=== PATIENT | female | born 1995 | race Caucasian/White ===

== ENCOUNTER 2019-06-23 04:10 | Inpatient (IN) | payer BC ==
[2019-06-23] MEDS ORDERED: Nalbuphine 10 MG/1 ML Vial IVPUSH PRN (14:00)
[2019-06-23] MEDS ORDERED: Ondansetron 4 MG/2 ML SDV IVPUSH PRN ×2 (14:00→16:02)
[2019-06-23] MEDS ORDERED: Sodium Chloride 0.9% 10 ML Syringe FLUSH PRN (14:00)
[2019-06-23] MEDS ORDERED: Oxytocin/Lactated Ringers 10 UNIT/1,000 ML BAG IV SCH ×2 (14:00→14:30)
[2019-06-23] MEDS: Lactated Ringers 1,000 ML IV SCH ×3 (14:19→20:13)
[2019-06-23] MEDS ORDERED: ePHEDrine 50 MG/ML SDV IVPUSH PRN (16:02)
[2019-06-23] MEDS ORDERED: fentaNYL 100 MCG/2 ML SDV EPIDUR PRN (16:02)
--- NOTE | 2019-06-23 16:09 | PCM.PREANE ---
Preanesthetic Assessment - Anesthesia/Transfusion/Family Hx Anesthesia History: Prior Anesthesia Without Reaction Family History of Anesthesia Reaction: No Transfusion History: No Prior Transfusion(s) Intubation History: Unknown - Review of Systems General: No Symptoms Pulmonary: No Symptoms (Asthma-last used inhaler 5 years ago.) Cardiovascular: No Symptoms Gastrointestinal: No Symptoms (GERD) Neurological: No Symptoms Other: Reports: None, Sinus Problem (seasonal allergies) - Physical Assessment NPO Status Date: 06/23/19 NPO Status Time: 09:00 Vital Signs: Last Vital Signs Temp 36.4 C 06/23/19 14:00 Pulse 89 06/23/19 14:00 Resp 16 06/23/19 14:00 BP 130/76 06/23/19 14:00 Pulse Ox Height: 1.63 m Weight: 91.626 kg ASA Class: 2 Mental Status: Alert & Oriented x3 Airway Class: Mallampati = 3 Dentition: Reports: Normal Dentition, Caries Thyro-Mental Finger Breadths: 3 Mouth Opening Finger Breadths: 3 ROM/Head Extension: Full Lungs: Clear to Auscultation, Normal Respiratory Effort Cardiovascular: Regular Rate, Regular Rhythm, No Murmurs - Lab Values: Laboratory Last Values WBC 14.25 K/mm3 (3.98-10.04) H 06/23/19 14:20 RBC 4.05 M/mm3 (3.98-5.22) 06/23/19 14:20 Hgb 11.9 gm/L (11.2-15.7) D 06/23/19 14:20 Hct 36.0 % (34.1-44.9) 06/23/19 14:20 MCV 88.9 fl (79.4-94.8) D 06/23/19 14:20 MCH 29.4 pg (25.6-32.2) 06/23/19 14:20 MCHC 33.1 g/dl (32.2-35.5) 06/23/19 14:20 RDW Std Deviation 44.4 fL (36.4-46.3) 06/23/19 14:20 Plt Count 267 K/mm3 (182-369) 06/23/19 14:20 MPV 9.9 fl (9.4-12.3) 06/23/19 14:20 Blood Type A POSITIVE 06/23/19 14:20 Gel Antibody Screen Negative 06/23/19 14:20 Above labs reviewed and noted and within acceptable ranges to proceed with epidural if desired. - Allergies Allergies/Adverse Reactions: Allergies Allergy/AdvReac Type Severity Reaction Status Date / Time Sulfa (Sulfonamide Allergy Rash Verified 11/07/14 23:18 Antibiotics) - Anesthesia Plan Pre-Op Medication Ordered: None - Acknowledgements Anesthesia Type Planned: Epidural Pt an Appropriate Candidate for the Planned Anesthesia: Yes Alternatives and Risks of Anesthesia Discussed w Pt/Guardian: Yes Pt/Guardian Understands and Agrees with Anesthesia Plan: Yes PreAnesthesia Questionnaire Cardiovascular History: Reports: Other (See Below) Other Cardiovascular History: history of heart murmer Respiratory History: Reports: Asthma Other Respiratory History: good control 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: - Past Surgical History HEENT Surgical History: Reports: Naso-Sinus Surgery - SUBSTANCE USE Smoking Status *Q: Never Smoker - HOME MEDS Home Medications: Home Meds PNV95/Ferrous Fumarate/FA [ Tablet] 1 each PO DAILY 06/23/19 [History] - CURRENT (IN HOUSE) MEDS Current Meds: Current Medications Lactated Ringer's (Ringers, Lactated) 1,000 mls @ 100 mls/hr IV ASDIRECTED IGNACIO Last Admin: 06/23/19 14:19 Dose: 100 mls/hr Oxytocin/Lactated Ringer's (Pitocin In Lr 10 Units/1,000 Ml) 10 unit in 1,000 mls @ 12 mls/hr IV TITRATE IGNACIO; Protocol Last Titration: 06/23/19 15:18 Dose: 4 munits/min, 24 mls/hr Nalbuphine HCl (Nubain) 10 mg IVPUSH Q2H PRN PRN Reason: Pain Ondansetron HCl (Zofran) 4 mg IVPUSH Q4H PRN PRN Reason: Nausea/Vomiting Sodium Chloride (Saline Flush) 10 ml FLUSH ASDIRECTED PRN PRN Reason: Keep Vein Open Discontinued Medications Oxytocin/Lactated Ringer's (Pitocin In Lr 10 Units/1,000 Ml) 10 unit in 1,000 mls @ 500 mls/hr IV .CONTINUOUS IGNACIO
[2019-06-23] MEDS ORDERED: Bupivacaine/fentaNYL/NS 100 ML Bag EPIDUR SCH (16:15)
[2019-06-23] MEDS ORDERED: Phenylephrine 1 MG in Sodium Chloride 0.9% 10 ML IV SCH (16:15)
--- NOTE | 2019-06-23 19:22 | PCM.LDHP ---
L&D History of Present Illness - General Date of Service: 06/23/19 Admit Problem/Dx: Patient Status Order with Admit Dx/Problem 06/23/19 14:00 Patient Status [ADT] Routine Admission Diagnosis/Problem Admission Diagnosis/Problem Spontaneous rupture of amniotic membranes Source of Information: Patient History Limitations: Reports: No Limitations - History of Present Illness Introduction:: Patient is a 23 y/o at 38 4/7 wks who presents with SROM. Doing well. Minimal contractions. 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: : 1 Para: 0 LMP (Approximate): - Past Surgical History HEENT Surgical History: Reports: Naso-Sinus Surgery Social & Family History - Tobacco Use Smoking Status *Q: Never Smoker - Caffeine Use Caffeine Use: Reports: None - Alcohol Use Alcohol Use History: No - Recreational Drug Use Recreational Drug Use: No H&P Review of Systems - Review of Systems: Review Of Systems: See Below General: Reports: No Symptoms Pulmonary: Reports: No Symptoms Cardiovascular: Reports: No Symptoms Gastrointestinal: Reports: No Symptoms Genitourinary: Reports: No Symptoms Musculoskeletal: Reports: No Symptoms Psychiatric: Reports: No Symptoms Neurological: Reports: No Symptoms L&D Exam - Exam Exam: See Below - Vital Signs Vital Signs: Last Vital Signs Temp 36.4 C 06/23/19 14:00 Pulse 89 06/23/19 14:00 Resp 16 06/23/19 14:00 BP 130/76 06/23/19 14:00 Pulse Ox Weight: 91.626 kg - OB Specific Contraction Intensity: Mild to Moderate Movement: Active Heart Tones: Present Heart Tones per Min: 135 Heart Rate (FHR) Variability: Moderate (6-25 bmp) Presentation: Vertex - Min Score Min Score Cervix Position: Midposition Min Score Consistency: Soft Min Score Effacement: >80% Min Score Dilation: 3-4 cm Min Score 's Station: -2 Min Score Total: 9 - Exam General: Alert, Oriented, Cooperative Lungs: Clear to Auscultation, Normal Respiratory Effort Cardiovascular: Regular Rate, Regular Rhythm GI/Abdominal Exam: Soft, Non-Tender Genitourinary: Normal external exam Extremities: Normal Inspection Skin: Warm, Dry, Intact - Patient Data Lab Results Last 24 hrs: Laboratory Results - last 24 hr 06/23/19 06/23/19 Range/Units 14:20 14:20 WBC 14.25 H (3.98-10.04) K/mm3 RBC 4.05 (3.98-5.22) M/mm3 Hgb 11.9 D (11.2-15.7) gm/L Hct 36.0 (34.1-44.9) % MCV 88.9 D (79.4-94.8) fl MCH 29.4 (25.6-32.2) pg MCHC 33.1 (32.2-35.5) g/dl RDW Std Deviation 44.4 (36.4-46.3) fL Plt Count 267 (182-369) K/mm3 MPV 9.9 (9.4-12.3) fl Blood Type A POSITIVE Gel Antibody Screen Negative Result Diagrams: 06/23/19 14:20 - Problem List (1) 38 weeks gestation of SNOMED Code(s): 02967943 ICD Code: Z3A.38 - 38 WEEKS GESTATION OF Status: Acute Current Visit: Yes (2) Spontaneous rupture of membranes SNOMED Code(s): 118206175 ICD Code: [id number] - Status: Acute Current Visit: Yes Problem List Initiated/Reviewed/Updated: Yes Orders Last 24hrs: Active Orders 24 hr Category Date Time Status Patient Status [ADT] Routine ADT 06/23/19 14:00 Active Activity as Tolerated [RC] PFP Care 06/23/19 14:00 Active Communication Order [RC] ASDIRECTED Care 06/23/19 14:00 Active Heart Tones [RC] ASDIRECTED Care 06/23/19 14:01 Active Non Stress Test [RC] PER UNIT ROUTINE Care 06/23/19 14:00 Active Notify Provider [RC] ASDIRECTED Care 06/23/19 16:02 Active Notify Provider [RC] PFP Care 06/23/19 14:00 Active Notify Provider [RC] PRN Care 06/23/19 14:00 Active Oxygen Therapy [RC] ASDIRECTED Care 06/23/19 16:02 Active Peripheral IV Care [RC] . DIRECTED Care 06/23/19 14:01 Active Pulse Oximetry [RC] ASDIRECTED Care 06/23/19 16:02 Active Vital Signs [RC] PER UNIT ROUTINE Care 06/23/19 14:00 Active Regular Diet [DIET] Diet 06/23/19 Lunch Active PATIENT RETYPE [BBK] Routine Lab 06/23/19 15:08 Ordered RAPID PLASMA REAGIN,RPR [CHEM] Routine Lab 06/23/19 14:20 Received Bupivacaine/fentaNYL/NS [fentaNYL/Bupivacaine/NS 2 MCG- Med 06/23/19 16:15 Active 0.125% 100 ML] 100 ml EPIDUR ASDIRECTED Lactated Ringers [Ringers, Lactated] 1,000 ml Med 06/23/19 14:00 Active IV ASDIRECTED Nalbuphine [Nubain] Med 06/23/19 14:00 Active 10 mg IVPUSH Q2H PRN Ondansetron [Zofran] Med 06/23/19 16:02 Active 4 mg IVPUSH ONETIME PRN Ondansetron [Zofran] Med 06/23/19 14:00 Active 4 mg IVPUSH Q4H PRN Oxytocin/Lactated Ringers [Pitocin in LR 10 Units/1,000 Med 06/23/19 14:30 Active ML] 10 unit in 1,000 ml IV TITRATE Phenylephrine [Jaime-Synephrine] 1 mg Med 06/23/19 16:15 Active Sodium Chloride 0.9% [Normal Saline] 10 ml IV TITRATE Sodium Chloride 0.9% [Saline Flush] Med 06/23/19 14:00 Active 10 ml FLUSH ASDIRECTED PRN ePHEDrine [ePHEDrine sulfate] Med 06/23/19 16:02 Active 5 mg IVPUSH ASDIRECTED PRN fentaNYL [Sublimaze] Med 06/23/19 16:02 Active 100 mcg EPIDUR Q3H PRN Electronic Heart Tones Ext w TOCO [WOMSER] Oth 06/23/19 14:00 Ordered Routine Electronic Heart Tones Internal [WOMSER] Per Unit Oth 06/23/19 14:00 Ordered Routine Peripheral IV Insertion Adult [OM.PC] Routine Oth 06/23/19 14:00 Ordered Resuscitation Status Routine Resus Stat 06/23/19 14:00 Ordered Medication Orders Ephedrine Sulfate (Ephedrine Sulfate) 5 mg IVPUSH ASDIRECTED PRN PRN Reason: Hypotension Fentanyl (Sublimaze) 100 mcg EPIDUR Q3H PRN PRN Reason: Pain Fentanyl/Bupivacaine HCl (Fentanyl/Bupivacaine/Ns 2 Mcg-0.125% 100 Ml) 100 ml EPIDUR ASDIRECTED IGNACIO Lactated Ringer's (Ringers, Lactated) 1,000 mls @ 100 mls/hr IV ASDIRECTED IGNACIO Last Admin: 06/23/19 19:16 Dose: 100 mls/hr Infusion: 06/23/19 19:16 Dose: 100 mls/hr Admin: 06/23/19 14:19 Dose: 100 mls/hr Oxytocin/Lactated Ringer's (Pitocin In Lr 10 Units/1,000 Ml) 10 unit in 1,000 mls @ 12 mls/hr IV TITRATE IGNACIO; Protocol Last Titration: 06/23/19 16:31 Dose: 6 munits/min, 36 mls/hr Titration: 06/23/19 15:18 Dose: 4 munits/min, 24 mls/hr Admin: 06/23/19 14:20 Dose: 2 munits/min, 12 mls/hr Phenylephrine HCl 1 mg/ Sodium (Chloride) 10.1 mls @ 1 mls/sec IV TITRATE IGNACIO; Protocol Nalbuphine HCl (Nubain) 10 mg IVPUSH Q2H PRN PRN Reason: Pain Last Admin: 06/23/19 18:52 Dose: 10 mg Ondansetron HCl (Zofran) 4 mg IVPUSH Q4H PRN PRN Reason: Nausea/Vomiting Ondansetron HCl (Zofran) 4 mg IVPUSH ONETIME PRN PRN Reason: Nausea/Vomiting Sodium Chloride (Saline Flush) 10 ml FLUSH ASDIRECTED PRN PRN Reason: Keep Vein Open Assessment/Plan Comment:: 23 y/o at 38 4/7 wks who presents with SROM * labs * GBS negative, no need for antibiotics * pain management per patient preference * Anticipate
--- NOTE | 2019-06-23 20:00 | PCM.PNLD ---
Labor Progress Note - VS & Meds Vital Signs: Last Vital Signs Temp 36.4 C 06/23/19 14:00 Pulse 89 06/23/19 14:00 Resp 16 06/23/19 14:00 BP 130/76 06/23/19 14:00 Pulse Ox Active Medications: Current Medications Ephedrine Sulfate (Ephedrine Sulfate) 5 mg IVPUSH ASDIRECTED PRN PRN Reason: Hypotension Fentanyl (Sublimaze) 100 mcg EPIDUR Q3H PRN PRN Reason: Pain Last Admin: 06/23/19 19:56 Dose: 100 mcg Fentanyl/Bupivacaine HCl (Fentanyl/Bupivacaine/Ns 2 Mcg-0.125% 100 Ml) 100 ml EPIDUR ASDIRECTED IGNACIO Last Admin: 06/23/19 19:55 Dose: 100 ml Lactated Ringer's (Ringers, Lactated) 1,000 mls @ 100 mls/hr IV ASDIRECTED IGNACIO Last Admin: 06/23/19 19:16 Dose: 100 mls/hr Oxytocin/Lactated Ringer's (Pitocin In Lr 10 Units/1,000 Ml) 10 unit in 1,000 mls @ 12 mls/hr IV TITRATE IGNACIO; Protocol Last Titration: 06/23/19 16:31 Dose: 6 munits/min, 36 mls/hr Phenylephrine HCl 1 mg/ Sodium (Chloride) 10.1 mls @ 1 mls/sec IV TITRATE IGNACIO; Protocol Nalbuphine HCl (Nubain) 10 mg IVPUSH Q2H PRN PRN Reason: Pain Last Admin: 06/23/19 18:52 Dose: 10 mg Ondansetron HCl (Zofran) 4 mg IVPUSH Q4H PRN PRN Reason: Nausea/Vomiting Ondansetron HCl (Zofran) 4 mg IVPUSH ONETIME PRN PRN Reason: Nausea/Vomiting Sodium Chloride (Saline Flush) 10 ml FLUSH ASDIRECTED PRN PRN Reason: Keep Vein Open Discontinued Medications Oxytocin/Lactated Ringer's (Pitocin In Lr 10 Units/1,000 Ml) 10 unit in 1,000 mls @ 500 mls/hr IV .CONTINUOUS IGNACIO - Uterine Contractions Uterine Monitoring Mode: External [place] Contraction Intensity: Moderate to Strong Uterine Resting Tone: Soft - Monitoring Monitor Mode: External Ultrasound Heart Rate (FHR) Baseline: 135 Heart Rate (FHR) Variability: Moderate (6-25 bmp) Accelerations: Present, 15x15 Decelerations: None Strip Review: Category I - Labor Progress (Free Text) Labor Progress: Doing well. About to get her epidural. Pitocin at 6. Continue present management. Reassess cervix after epidural
[2019-06-24] MEDS ORDERED: Bupivacaine 0.25% 10 ML SDV ONE
[2019-06-24] MEDS ORDERED: Misoprostol 200 MCG Tab ONE (04:20)
--- NOTE | 2019-06-24 04:24 | PCM.DEL ---
L & D Note - General Info Date of Service: 06/24/19 - Delivery Note Labor: Augmented by Oxytocin Delivery Outcome: Livebirth Delivery Method: Spontaneous Vaginal Delivery-Single Delivery Mode: Spontaneous Presentation: Right Occiput Posterior (ROP) Nuchal Cord: None Anesthesia Type: Epidural Amniotic Fluid Description: Clear Episiotomy Type: None Laceration: 2nd Degree, Perineal Suture type: Vicryl Suture size: 2-0 Placenta: Intact, Spontaneous Cord: 3 Vessels Estimated Blood Loss: 250 Resuscitation Needed: No [place]: Bulb Syringe, Stimulated, Warmed, Sabina Used, Warmer Used Delivery Comments (Free Text/Narrative):: Patient found to be complete and began pushing. With maternal pushing effort head delivered from an ROP presentation. No nuchal cord present. With gentle downward traction the shoulders and body delivered. placed on maternal abdomen. Cord clamped and cut. Cord blood obtained. Placenta allowed time to separate and expelled intact. Inspection of the perineum showed a 2nd degree laceration which was repaired with a 2-0 vicryl. Slight trickle of blood noted. Sweep of KIRSTIN performed and removed a small/moderate amount of clot. Patient given 600 mcg of cytotec. - General Info Date of Service: 06/24/19 - Patient Data Vitals - Most Recent: Last Vital Signs Temp 36.4 C 06/23/19 14:00 Pulse 89 06/23/19 14:00 Resp 16 06/23/19 14:00 BP 130/76 06/23/19 14:00 Pulse Ox Weight - Most Recent: 91.626 kg Lab Results Last 24 Hours: Laboratory Results - last 24 hr 06/23/19 06/23/19 06/23/19 Range/Units 14:20 14:20 14:20 WBC 14.25 H (3.98-10.04) K/mm3 RBC 4.05 (3.98-5.22) M/mm3 Hgb 11.9 D (11.2-15.7) gm/L Hct 36.0 (34.1-44.9) % MCV 88.9 D (79.4-94.8) fl MCH 29.4 (25.6-32.2) pg MCHC 33.1 (32.2-35.5) g/dl RDW Std Deviation 44.4 (36.4-46.3) fL Plt Count 267 (182-369) K/mm3 MPV 9.9 (9.4-12.3) fl RPR Non-reactive (NONREACTIVE) Blood Type A POSITIVE Gel Antibody Screen Negative Med Orders - Current: Current Medications Ephedrine Sulfate (Ephedrine Sulfate) 5 mg IVPUSH ASDIRECTED PRN PRN Reason: Hypotension Fentanyl (Sublimaze) 100 mcg EPIDUR Q3H PRN PRN Reason: Pain Last Admin: 06/23/19 19:56 Dose: 100 mcg Fentanyl/Bupivacaine HCl (Fentanyl/Bupivacaine/Ns 2 Mcg-0.125% 100 Ml) 100 ml EPIDUR ASDIRECTED IGNACIO Last Admin: 06/23/19 19:55 Dose: 100 ml Lactated Ringer's (Ringers, Lactated) 1,000 mls @ 100 mls/hr IV ASDIRECTED IGNACIO Last Admin: 06/23/19 20:13 Dose: 100 mls/hr Oxytocin/Lactated Ringer's (Pitocin In Lr 10 Units/1,000 Ml) 10 unit in 1,000 mls @ 12 mls/hr IV TITRATE IGNACIO; Protocol Last Titration: 06/23/19 16:31 Dose: 6 munits/min, 36 mls/hr Phenylephrine HCl 1 mg/ Sodium (Chloride) 10.1 mls @ 1 mls/sec IV TITRATE IGNACIO; Protocol Nalbuphine HCl (Nubain) 10 mg IVPUSH Q2H PRN PRN Reason: Pain Last Admin: 06/23/19 18:52 Dose: 10 mg Ondansetron HCl (Zofran) 4 mg IVPUSH Q4H PRN PRN Reason: Nausea/Vomiting Ondansetron HCl (Zofran) 4 mg IVPUSH ONETIME PRN PRN Reason: Nausea/Vomiting Sodium Chloride (Saline Flush) 10 ml FLUSH ASDIRECTED PRN PRN Reason: Keep Vein Open Discontinued Medications Oxytocin/Lactated Ringer's (Pitocin In Lr 10 Units/1,000 Ml) 10 unit in 1,000 mls @ 500 mls/hr IV .CONTINUOUS IGNACIO Misoprostol (Cytotec) Confirm Administered Dose 600 mcg .ROUTE .STK-MED ONE Stop: 06/24/19 04:21 - Problem List & Annotations (1) 38 weeks gestation of SNOMED Code(s): 12071703 Code(s): Z3A.38 - 38 WEEKS GESTATION OF Status: Acute Current Visit: Yes (2) Spontaneous rupture of membranes SNOMED Code(s): 689242536 Code(s): MOY8947 - Status: Acute Current Visit: Yes (3) Vaginal delivery SNOMED Code(s): 084546367 Code(s): O80 - ENCOUNTER FOR FULL-TERM UNCOMPLICATED DELIVERY Status: Acute Current Visit: Yes - Problem List Review Problem List Initiated/Reviewed/Updated: Yes - My Orders Last 24 Hours: My Active Orders 06/23/19 14:00 Patient Status [ADT] Routine Activity as Tolerated [RC] PFP Communication Order [RC] ASDIRECTED Non Stress Test [RC] PER UNIT ROUTINE Notify Provider [RC] PFP Notify Provider [RC] PRN Vital Signs [RC] PER UNIT ROUTINE Lactated Ringers [Ringers, Lactated] 1,000 ml IV ASDIRECTED Nalbuphine [Nubain] 10 mg IVPUSH Q2H PRN Ondansetron [Zofran] 4 mg IVPUSH Q4H PRN Sodium Chloride 0.9% [Saline Flush] 10 ml FLUSH ASDIRECTED PRN Electronic Heart Tones Ext w TOCO [WOMSER] Routine Electronic Heart Tones Internal [WOMSER] Per Unit Routine Peripheral IV Insertion Adult [OM.PC] Routine Resuscitation Status Routine 06/23/19 14:01 Heart Tones [RC] ASDIRECTED 06/23/19 14:30 Oxytocin/Lactated Ringers [Pitocin in LR 10 Units/1,000 ML] 10 unit in 1,000 ml IV TITRATE 06/23/19 Lunch Regular Diet [DIET] - Assessment Assessment:: 23 y/o G1 now P1001 PPD#1 from at 38 5/7 wks after SROM - Plan Plan:: * Routine cares * Encourage breast feeding * Discharge home in 1-2 days
[2019-06-24] MEDS ORDERED: Benzocaine/Menthol 20%-0.5% Spray 56 GM Canister TOP PRN (05:13)
[2019-06-24] MEDS ORDERED: Docusate Sodium 100 MG Cap PO PRN (05:13)
[2019-06-24] MEDS ORDERED: Witch Hazel Medicated Pads 40/Jar TOP PRN (05:13)
[2019-06-24] MEDS ORDERED: Ibuprofen 600 MG Tab PO PRN (05:13)
[2019-06-24] MEDS ORDERED: Lanolin 100% Cream 7 GM Tube TOP PRN (05:13)
[2019-06-24] MEDS ORDERED: Acetaminophen 325 MG Tab PO PRN (05:13)
--- NOTE | 2019-06-24 08:52 | PCM48HPAN ---
Post Anesthesia Note - EVALUATION WITHIN 48HRS OF ANESTHETIC Vital Signs in Normal Range: Yes Patient Participated in Evaluation: Yes Respiratory Function Stable: Yes Airway Patent: Yes Cardiovascular Function Stable: Yes Hydration Status Stable: Yes Pain Control Satisfactory: Yes Nausea and Vomiting Control Satisfactory: Yes Mental Status Recovered: Yes Vital Signs: Last Vital Signs Temp 36.4 C 06/23/19 14:00 Pulse 89 06/23/19 14:00 Resp 16 06/23/19 14:00 BP 130/76 06/23/19 14:00 Pulse Ox - COMMENTS/OBSERVATIONS Free Text/Narrative:: no anesthesia complications noted
--- NOTE | 2019-06-25 07:02 | PCM.DCSUM1 ---
Discharge Summary - Hospital Course Brief History: Unremarkable labor, deliver and course Diagnosis: Stroke: No - Discharge Data Discharge Date: 06/25/19 Discharge Disposition: Home, Self-Care 01 Condition: Good - Patient Instructions Diet: Usual Diet as Tolerated Activity: No Strenuous Activities Driving: May Drive Today Showering/Bathing: May Shower Wound/Incision Care: Keep Operative Site/Wound Site Clean and Dry Notify Provider of: Fever, Increased Pain, Swelling and Redness, Drainage, Nausea and/or Vomiting - Discharge Plan *PRESCRIPTION DRUG MONITORING PROGRAM REVIEWED*: No *COPY OF PRESCRIPTION DRUG MONITORING REPORT IN PATIENT TUSHAR: No Home Medications: Home Meds PNV95/Ferrous Fumarate/FA [ Tablet] 1 each PO DAILY 06/23/19 [History] Referrals: Ekta Ortiz MD [Primary Care Provider] - (2 weeks) - Discharge Summary/Plan Comment DC Time >30 min.: No - General Info Date of Service: 06/25/19 Functional Status: Reports: Pain Controlled - Review of Systems General: Reports: No Symptoms HEENT: Reports: No Symptoms Pulmonary: Reports: No Symptoms Cardiovascular: Reports: No Symptoms Gastrointestinal: Reports: No Symptoms Genitourinary: Reports: No Symptoms Musculoskeletal: Reports: No Symptoms Skin: Reports: No Symptoms Neurological: Reports: No Symptoms Psychiatric: Reports: No Symptoms - Patient Data Vitals - Most Recent: Last Vital Signs Temp 36.6 C 06/25/19 03:58 Pulse 72 06/25/19 03:58 Resp 15 06/25/19 03:58 BP 119/71 06/25/19 03:58 Pulse Ox 99 06/25/19 03:58 Weight - Most Recent: 91.626 kg Med Orders - Current: Current Medications Acetaminophen (Tylenol) 650 mg PO Q4H PRN PRN Reason: mild pain or fever Benzocaine/Menthol (Dermoplast Pain Relief [place]) 0 gm TOP ASDIRECTED PRN PRN Reason: Perineal Comfort Measure Last Admin: 06/24/19 06:05 Dose: 1 applic Docusate Sodium (Colace) 100 mg PO BID PRN PRN Reason: Constipation Last Admin: 06/25/19 04:00 Dose: 100 mg Emollient Ointment (Lansinoh Hpa) 0 gm TOP ASDIRECTED PRN PRN Reason: Sore Nipples Ibuprofen (Motrin) 600 mg PO Q6H PRN PRN Reason: Mild pain or fever [place] Karen (Tucks) 1 pad TOP ASDIRECTED PRN PRN Reason: Perineal Comfort Measure Last Admin: 06/24/19 06:05 Dose: 1 pad Discontinued Medications Ephedrine Sulfate (Ephedrine Sulfate) 5 mg IVPUSH ASDIRECTED PRN PRN Reason: Hypotension Fentanyl (Sublimaze) 100 mcg EPIDUR Q3H PRN PRN Reason: Pain Last Admin: 06/23/19 19:56 Dose: 100 mcg Fentanyl/Bupivacaine HCl (Fentanyl/Bupivacaine/Ns 2 Mcg-0.125% 100 Ml) 100 ml EPIDUR ASDIRECTED IGNACIO Last Admin: 06/23/19 19:55 Dose: 100 ml Lactated Ringer's (Ringers, Lactated) 1,000 mls @ 100 mls/hr IV ASDIRECTED IGNACIO Last Admin: 06/23/19 20:13 Dose: 100 mls/hr Oxytocin/Lactated Ringer's (Pitocin In Lr 10 Units/1,000 Ml) 10 unit in 1,000 mls @ 500 mls/hr IV .CONTINUOUS IGNACIO Oxytocin/Lactated Ringer's (Pitocin In Lr 10 Units/1,000 Ml) 10 unit in 1,000 mls @ 12 mls/hr IV TITRATE IGNACIO; Protocol Last Titration: 06/24/19 04:12 Dose: 999 munits/min, 5,994 mls/hr Phenylephrine HCl 1 mg/ Sodium (Chloride) 10.1 mls @ 1 mls/sec IV TITRATE IGNACIO; Protocol Misoprostol (Cytotec) Confirm Administered Dose 600 mcg .ROUTE .STK-MED ONE Stop: 06/24/19 04:21 Last Admin: 06/24/19 04:20 Dose: 600 mcg Nalbuphine HCl (Nubain) 10 mg IVPUSH Q2H PRN PRN Reason: Pain Last Admin: 06/23/19 18:52 Dose: 10 mg Ondansetron HCl (Zofran) 4 mg IVPUSH Q4H PRN PRN Reason: Nausea/Vomiting Ondansetron HCl (Zofran) 4 mg IVPUSH ONETIME PRN PRN Reason: Nausea/Vomiting Sodium Chloride (Saline Flush) 10 ml FLUSH ASDIRECTED PRN PRN Reason: Keep Vein Open - Exam General: Reports: Alert, Oriented HEENT: Reports: Pupils Equal, Pupils Reactive, EOMI, Mucous Membr. Moist/[place] Neck: Reports: Supple Lungs: Reports: Clear to Auscultation, Normal Respiratory Effort Cardiovascular: Reports: Regular Rate, Regular Rhythm GI/Abdominal Exam: Normal Bowel Sounds, Soft, Non-Tender, No Organomegaly, No Distention, No Abnormal Bruit, No Mass, Pelvis Stable Rectal (Female) Exam: Normal Exam, Normal Rectal Tone Back Exam: Reports: Normal Inspection, Full Range of Motion Extremities: Normal Inspection, Normal Range of Motion, Non-Tender, No Pedal Edema, Normal Capillary Refill Skin: Reports: Warm, Dry, Intact Wound/Incisions: Reports: Healing Well Neurological: Reports: No New Focal Deficit Psy/Mental Status: Reports: Alert, Normal Affect, Normal Mood
[2019-06-25 10:34] VITALS: BP 122/81
== END 2019-06-25 10:20 | disposition home or self-care (01) | DRG 560 ==
LOC: JD.OB 04:10 → OBSVTOIN 06-24 04:10
PROVIDERS: ADMIT Obstetrics & Gynecology; ATTEND Obstetrics & Gynecology
PROC: 0KQM0ZZ Repair Perineum Muscle, Open Approach (ICD-10-PCS; principal; 2019-06-24)
PROC: 10E0XZZ Delivery of Products of Conception, External Approach (ICD-10-PCS; 2019-06-24)
DX: O70.1 Second degree perineal laceration during delivery (principal); Z3A.38 38 weeks gestation of pregnancy; Z37.0 Single live birth
CPT/HCPCS: 36415; 51701; 51702; 59025; 59409; 85027; 86592; 86850; 86900; 86901; A9270-GY; J2300; J2590; J3010; J3490; J7120

== ENCOUNTER 2022-03-25 06:29 | Inpatient (IN) | payer BC, OTHER ==
[2022-03-25] MEDS ORDERED: Sodium Chloride 0.9% 10 ML Syringe FLUSH PRN (07:51)
[2022-03-25] MEDS ORDERED: Nalbuphine HCl 10 MG/ 1ML Amp IVPUSH PRN (07:51)
[2022-03-25] MEDS ORDERED: Lidocaine 1% 50 ML MDV INJECT ONE (07:51)
[2022-03-25] MEDS ORDERED: Ondansetron 4 MG/2 ML SDV IVPUSH PRN (07:51)
[2022-03-25] MEDS ORDERED: Oxytocin/Lactated Ringers 10 UNIT/1,000 ML BAG IV SCH (08:00)
[2022-03-25] MEDS ORDERED: Lactated Ringers 1,000 ML IV SCH (08:00)
[2022-03-25] MEDS ORDERED: Sodium Chloride 0.9% 10 ML Syringe FLUSH SCH (09:00)
[2022-03-25] MEDS ORDERED: Docusate Sodium 100 MG Cap PO PRN (20:15)
[2022-03-25] MEDS ORDERED: Ibuprofen 600 MG Tab PO PRN (20:15)
[2022-03-25] MEDS ORDERED: Acetaminophen 325 MG Tab PO PRN (20:15)
[2022-03-25] MEDS ORDERED: Benzocaine/Menthol 20%-0.5% Spray 78 GM Cannister TOP PRN (20:15)
[2022-03-25] MEDS ORDERED: Witch Hazel Medicated Pads 40/Jar TOP PRN (20:15)
[2022-03-26] MEDS ORDERED: Prenatal Multivitamin with Calcium/Folic Acid/Iron Tab PO SCH (09:00)
[2022-03-26 14:16] VITALS: BP 121/80; PULSE 74
== END 2022-03-26 11:59 | disposition home or self-care (01) | DRG 560 ==
LOC: JD.OB 06:29 → JD.OBCHECK 06:29 → JD.OB 08:01 → OBSVTOIN 08:43 → JD.OB 08:44
PROVIDERS: ADMIT Obstetrics & Gynecology; ATTEND Obstetrics & Gynecology
PROC: 10E0XZZ Delivery of Products of Conception, External Approach (ICD-10-PCS; principal; 2022-03-25)
DX: O80 Encounter for full-term uncomplicated delivery (principal); Z3A.38 38 weeks gestation of pregnancy; Z37.0 Single live birth
CPT/HCPCS: 36415; 59025; 59409; 85025; 86592; J2590